=== PATIENT | male | born 1995 | race Caucasian/White ===

== ENCOUNTER 2018-10-25 13:46 | Emergency (ER) | payer SELFPAY, OTHER | END 2018-10-25 16:01 | disposition home or self-care (01) | LOC: JERFT 13:46 ==

== ENCOUNTER 2022-05-11 13:26 | Emergency (ER) | payer SELFPAY ==
[2022-05-11 13:30] VITALS: BP 116/72; PULSE 74; RESP 18; TEMP 97.9; BMI 23.5
== END 2022-05-11 15:03 | disposition home or self-care (01) ==
LOC: JERFT 13:26
DX: S69.91XA Unspecified injury of right wrist, hand and finger(s), initial encounter (principal); M25.531 Pain in right wrist; X50.0XXA Overexertion from strenuous movement or load, initial encounter
CPT/HCPCS: 73110-TC-RT-FY; 73130-TC-RT-FY; 99283-25